=== PATIENT | male | born 1975 | race Caucasian/White ===

== ENCOUNTER 2020-06-29 08:56 | Outpatient (RCR) | payer BC ==
[2020-06-04 14:10] VITALS: BP 121/66
[2020-06-08 14:45] VITALS: BP 133/73
[2020-06-15 14:55] VITALS: BP 130/75
[~2020-06-29] VITALS: Ht 180.3 cm; Wt 113.6 kg
[~2020-06-29 08:56] MED LIST: RABIES VACCINE HUMAN DIPL CELL 1 ML/2.5 UNITS SYR INJ ONE; RABIES VACCINE HUMAN DIPL CELL 1 ML/2.5 UNITS SYR ONE
[2020-06-29 09:08] VITALS: BP 114/74
[2020-06-29] MEDS ORDERED: RABIES VACCINE HUMAN DIPL CELL 1 ML/2.5 UNITS SYR INJ ONE (14:00)
== END 2020-06-29 09:08 | disposition home or self-care (01) ==
LOC: SDC 08:56
PROVIDERS: ATTEND Nurse Practitioner Family
DX: Z29.14 Encounter for prophylactic rabies immune globulin (principal)
CPT/HCPCS: 90675; 96372